=== PATIENT | female | born 1995 | race Caucasian/White ===

== ENCOUNTER 2019-07-17 18:29 | Inpatient (IN) | payer MEDICAID, OTHER ==
[~2019-07-17] VITALS: Ht 157.5 cm; Wt 69.9 kg
[~2019-07-17 18:29] MED LIST: LEVO0.0841 PO; QUET400T4 PO
[2019-07-17 18:39] VITALS: BP 117/77
--- NOTE | 2019-07-17 18:41 | NUR ---
TRIAGE COMPLETE. VSS. TO LOBBY AWAITNG BED IN ED.
--- NOTE | 2019-07-17 19:27 | NUR ---
PT AMBULATED TO BED 5.
--- NOTE | 2019-07-17 19:30 | NUR ---
23 Y/O FEMALE BIB MOTHER C/O N/V SINCE THIS MORNING AND HAVING ABD PAIN. PT DENIES ANY TRAUMA. DENIES DIARRHEA; SKIN IS PINK/WARM/DRY; AAOX4 WITH EVEN AND STEADY GAIT; PT DENIES ANY FEVER, CP, SOB, OR COUGH AT THIS TIME; PATIENT STATES PAIN OF 10/10 AT THIS TIME; VSS; PATIENT POSITIONED FOR COMFORT; HOB ELEVATED; BEDRAILS UP X1; BED DOWN AND LOCKED . MEDICAL HX: THYROID ALLERGY: PCN
--- NOTE | 2019-07-17 19:39 | NUR ---
AT BEDSIDE EXAMINING PT
--- NOTE | 2019-07-17 19:41 | NUR ---
Dr. Rodríguez examining patient.
[2019-07-17] MEDS ORDERED: NACL 0.9% 1,000 ML IV ONE (19:45)
[2019-07-17] MEDS ORDERED: KETOROLAC 30 MG/ML VIAL IVP ONE (19:45)
[2019-07-17] MEDS ORDERED: ONDANSETRON 4 MG/2 ML VIAL IVP ONE (19:45)
[2019-07-17 20:05] LABS: BASOPHILS % (AUTO) 0.1 % (0.0-2.0); EOSINOPHILS % (AUTO) 0.1 % (0.0-4.0); HEMATOCRIT 44.1 % (36-48); HEMOGLOBIN 15.5 g/dL (12.0-16.0); LYMPHOCYTES # (AUTO) 0.6 K/uL (2.5-16.5); LYMPHOCYTES % (AUTO) 5.8 % (20.5-51.1); MEAN CORPUSCULAR HEMOGLOBIN 31 pg (27-31); MEAN CORPUSCULAR HGB CONC 35 g/dL (33-37); MEAN CORPUSCULAR VOLUME 88.7 fL (80-94); MONOCYTES # (AUTO) 0.5 K/uL (0.8-1.0); MONOCYTES % (AUTO) 5.1 % (1.7-9.3); NEUTROPHILS # (AUTO) 9.1 K/uL (1.8-7.7); NEUTROPHILS % (AUTO) 88.9 % (42.2-75.2); PLATELET COUNT (AUTO) 206 K/uL (140-450); RED BLOOD CELL COUNT(AUTO) 4.97 MIL/uL (4.20-5.40); RED CELL DISTRIBUTION WIDTH 12.7 % (11.6-13.7); WHITE BLOOD COUNT (AUTO) 10.2 K/uL (4.8-10.8)
[2019-07-17 20:26] LABS: ALBUMIN 4.3 g/dL (3.4-5.0); ANION GAP 7.7 (8-16); CARBON DIOXIDE 32.3 mmol/L (21-32); CREATININE 0.7 mg/dL (0.6-1.3); TOTAL BILIRUBIN 0.5 mg/dL (0.0-1.0)
--- NOTE | 2019-07-17 20:37 | NUR ---
URINE DIP AND PREG DONE
--- NOTE | 2019-07-17 20:50 | NUR ---
PT LEFT TO CT VIA RNEY
--- NOTE | 2019-07-17 21:01 | NUR ---
PT RETUREND FROM CT VIA GURNEY. PT STABLE. PT IN POSITION OF COMFORT. BED LOW, LOCKED AND 2 SIDERAILS UP. WILL CONTINUE TO MONITOR
[2019-07-17 21:14] LABS: BILIRUBIN,URINE NEGATIVE (NEGATIVE); BLOOD, URINE 2+ (NEGATIVE); COLOR,URINE YELLOW (YELLOW); LEUKOCYTE ESTERASE ,URINE 1+ (NEGATIVE); NITRITE, URINE POSITIVE (NEGATIVE); PH,URINE 6.5 (5.0-9.0); UGLUCOSE NEGATIVE (NEGATIVE)
[2019-07-17 21:16] LABS: APPEARANCE,URINE CLOUDY (CLEAR)
[2019-07-17] MEDS ORDERED: LEVOFLOXACIN 750 MG/D5W PREMIX 150 ML IV ONE (21:20)
[2019-07-17 21:31] LABS: WBC,URINE 0-5 /HPF (0-5); YEAST,URINE Few /HPF (None Seen)
--- NOTE | 2019-07-17 22:36 | NUR ---
PT RESTING IN POSITION OF COMFORT, BED LOW AND LOCKED, 2 SIDERAILS UP. VSS. RR EVEN AND UNLABORED. WILL CONTINUE TO MONITOR
[2019-07-17] MEDS ORDERED: LAM200 PO (22:49)
--- NOTE | 2019-07-17 23:40 | NUR ---
RECEIVED PATIENT FROM ER IN STABLE CONDITION VIA GURNEY. MOTHER AT BEDSIDE. RESPIRATIONS EVEN, UNLABORED. PATIENT IS ABLE TO MAKE NEEDS KNOWN. SKIN ASSESSMENT COMPLETE. SKIN INTACT. IV SITE NOTED TO LEFT AC 20G PATENT/INTACT, INFUSING LEVAQUIN AT THIS TIME. NO C/O ABDOMINAL PAIN AT THIS TIME. NO S/SX ACUTE DISTRESS. MRSA SCREEN COMPLETED. ORIENTED PATIENT TO ROOM, STAFF AND CALL LIGHT. CALL LIGHT WITHIN REACH. WILL CONTINUE TO MONITOR.
--- NOTE | 2019-07-17 23:55 | NUR ---
TRANSFERRED CARE/REPORT GIVEN TO STEVE SAUNDERS, PT WENT TO BED 112A.
[2019-07-17 23:58] VITALS: BP 115/77
--- NOTE | 2019-07-18 | NUR ---
PATIENT C/O THAT SHE IS HUNGRY. PROVIDED EDUCATION REGARDING NPO STATUS. PATIENT VERBALIZED UNDERSTANDING BUT NEEDS REINFORCEMENT DUE TO DEVELOPMENTAL DELAY. NO S/SX ACUTE DISTRESS. CALL LIGHT WITHIN REACH. WILL CONTINUE TO MONITOR.
--- NOTE | 2019-07-18 01:01 | NUR ---
PATIENT ASLEEP WITH MOTHER AT BEDSIDE. NO C/O PAIN. NO S/SX ACUTE DISTRESS. CALL LIGHT WITHIN REACH. WILL CONTINUE TO MONITOR.
[2019-07-18] MEDS ORDERED: DEXT 5% / NACL 0.9% 500 ML IV SCH (01:50)
[2019-07-18] MEDS ORDERED: ACETAMINOPHEN 325 MG TAB PO PRN (02:40)
[2019-07-18] MEDS ORDERED: DOCUSATE SODIUM 100 MG GELCAP PO PRN (02:40)
[2019-07-18] MEDS ORDERED: FLUCONAZOLE 100 MG TAB PO SCH (02:40)
[2019-07-18] MEDS ORDERED: ONDANSETRON 4 MG/2 ML VIAL IM/IVP PRN (02:40)
[2019-07-18] MEDS ORDERED: MORPHINE SULFATE 2 MG/ML SYR IVP PRN (02:40)
[2019-07-18 03:12] LABS: PROTHROMBIN TIME 9.8 secs (10.8-13.4)
--- NOTE | 2019-07-18 03:37 | NUR ---
PATIENT ASLEEP AND IN STABLE CONDITION. NO C/O PAIN. NO S/SX ACUTE DISTRESS. CALL LIGHT WITHIN REACH. WILL CONTINUE TO MONITOR.
[2019-07-18 03:46] LABS: BARBITURATE, URINE NEG. ng/ml (NEG <=200); BENZODIAZEPINE, URINE NEG. ng/mL (NEG <=200); CANNABINOID, URINE NEG. ng/mL (NEG <=50); COCAINE, URINE NEG. ng/mL (NEG <=300); OPIATE, URINE NEG. ng/mL (NEG <=2000); PHENCYCLIDINE SCREEN,URINE NEG. ng/mL (NEG <=25)
[2019-07-18 03:55] LABS: FREE T4 (FREE THYROXINE) 1.2 ng/dL (0.76-1.46); MAGNESIUM 1.9 mg/dL (1.8-2.4); PHOSPHORUS 3.1 mg/dL (2.5-4.9); THYROID STIMULATING HORMONE 0.98 uIU/mL (0.34-3.74)
[2019-07-18] MEDS: metroNIDAZOLE 500 MG/NS PREMIX 100 ML IV SCH ×3 (04:08→20:10)
[2019-07-18] MEDS: LEVOTHYROXINE 0.075 MG TAB PO SCH (05:35)
--- NOTE | 2019-07-18 05:47 | NUR ---
PATIENT ASLEEP AND IN STABLE CONDITION. NO C/O PAIN. NO S/SX ACUTE DISTRESS. CALL LIGHT WITHIN REACH. WILL CONTINUE TO MONITOR.
[2019-07-18] MEDS: DEXT 5% /NACL 0.9% 1,000 ML IV SCH (07:17)
--- NOTE | 2019-07-18 07:22 | NUR ---
ENDORSED PATIENT TO AM SHIFT NURSE IN STABLE CONDITION FOR CONTINUITY OF CARE.
--- NOTE | 2019-07-18 07:25 | NUR ---
RECEIVED REPORT FROM NIGHT NURSE. PATIENT ASLEEP, EASILY AROUSABLE BY NAME OR TOUCH. RESPIRATION EVEN AND UNLABORED. SKIN WARM AND DRY TO TOUCH. IV INTACT AND PATENT TO LEFT AC. PLANS OF CARE DISCUSSED. MOTHER AT BEDSIDE. BED IN LOW POSITION. SAFETY MEASURES IN PLACE.
[2019-07-18 07:32] LABS: BASOPHILS % (AUTO) 0.2 % (0.0-2.0); EOSINOPHILS % (AUTO) 0.2 % (0.0-4.0); HEMATOCRIT 40.1 % (36-48); LYMPHOCYTES # (AUTO) 0.7 K/uL (2.5-16.5); MEAN CORPUSCULAR HEMOGLOBIN 31 pg (27-31); MEAN CORPUSCULAR HGB CONC 35 g/dL (33-37); MEAN CORPUSCULAR VOLUME 88.1 fL (80-94); MONOCYTES # (AUTO) 0.5 K/uL (0.8-1.0); MONOCYTES % (AUTO) 7.3 % (1.7-9.3); NEUTROPHILS # (AUTO) 5.4 K/uL (1.8-7.7); NEUTROPHILS % (AUTO) 82.3 % (42.2-75.2); PLATELET COUNT (AUTO) 175 K/uL (140-450); RED BLOOD CELL COUNT(AUTO) 4.56 MIL/uL (4.20-5.40); RED CELL DISTRIBUTION WIDTH 12.7 % (11.6-13.7); WHITE BLOOD COUNT (AUTO) 6.6 K/uL (4.8-10.8)
[2019-07-18 08:00] VITALS: BP 103/52
--- NOTE | 2019-07-18 08:49 | NUR ---
CALLED TO DR. DIAS IN REGARDS TO PATIENT'S SCHEDULED SURGERY @ 11 AM TODAY THAT NO CONSENT OBTAINED. PER DR. DIAS, HE WILL SEE AND EVALUATE THE PATIENT FIRST, HE MAY NOT PLAN ON SURGERY FOR TODAY.
--- NOTE | 2019-07-18 08:58 | NUR ---
PATIENT HAS BEEN SCREENED AND CATEGORIZED LOW NUTRITION RISK. PATIENT WILL BE SEEN WITHIN 7 DAYS OF ADMISSION. 07/24/[address]
--- NOTE | 2019-07-18 09:25 | NUR ---
PATIENT IN BED, ASLEEP EASILY AROUSABLE BY NAME OR TOUCH. NO S/S OF DISTRESS NOTED. SPOKE WITH MOTHER AT BEDSIDE IN REGARDS TO THE SURGERY THAT DR. DIAS NEED TO SEE THE PATIENT FIRST.
[2019-07-18 09:27] LABS: ANION GAP 13.2 (8-16); CARBON DIOXIDE 25.3 mmol/L (21-32); CREATININE 0.7 mg/dL (0.6-1.3); POTASSIUM 3.5 mmol/L (3.5-5.1)
--- NOTE | 2019-07-18 10:59 | NUR ---
USED [employer]ANCE [employer] HOST/HOSTESS PHONE #[phone]. EXPLAINED TO MOTHER THAT DR. DIAS WILL NEED TO SEE PATIENT PRIOR TO MAKING ANY DECISIONS RIGHT NOW. ENCOURAGED MOTHER IF SHE CAN WAIT FOR DR. DIAS. PATIENT'S FAMILY VERBALIZED UNDERSTANDING.
--- NOTE | 2019-07-18 12:00 | NUR ---
ROUNDS MADE. PATIENT IN BED, AWAKE, ALERT AND ORIENTED X4. RESTING QUIETLY. NO S/S OF DISTRESS NOTED. CALL LIGHT WITHIN REACH. SAFETY MEASURES IN PLACE.
--- NOTE | 2019-07-18 14:00 | NUR ---
ROUNDS MADE. PATIENT IN BED, AWAKE, ALERT AND ORIENTED X4. DENIES PAIN OR DISCOMFORT. RESTING QUIETLY. NO S/S OF DISTRESS NOTED. CALL LIGHT WITHIN REACH. SAFETY MEASURES IN PLACE.
[2019-07-18 16:00] VITALS: BP 104/59
--- NOTE | 2019-07-18 16:00 | NUR ---
PATIENT REMAINS IN STABLE CONDITION. VS CHECKED. NO S/S OF DISTRESS NOTED. CALL LIGHT WITHIN REACH.
--- NOTE | 2019-07-18 18:00 | NUR ---
DINNER TRAY AT BEDSIDE. PATIENT ALERT, AWAKE AND VERBALLY RESPONSIVE. NO S/S OF DISTRESS NOTED. DENIES PAIN. CALL LIGHT WITHIN REACH.
--- NOTE | 2019-07-18 19:05 | NUR ---
REPORT GIVEN TO NIGHT NURSE. PATIENT IN STABLE CONDITION.
--- NOTE | 2019-07-18 22:00 | NUR ---
PATIENT CONTINUES IN STABLE CONDITION. MOTHER IS AT BEDSIDE. NO C/O PAIN. NO S/SX ACUTE DISTRESS. PROVIDED POPSICLE TO PATIENT WITH NO DIFFICULTY EATING. NO N/V REPORTED AFTER EATING. CALL LIGHT WITHIN REACH. WILL CONTINUE TO MONITOR.
[2019-07-18] MEDS ORDERED: LEVOFLOXACIN 750 MG/D5W PREMIX 150 ML IV SCH (23:45)
[2019-07-18 23:58] VITALS: BP 105/55
--- NOTE | 2019-07-19 | NUR ---
PATIENT CONTINUES IN STABLE CONDITION. ASLEEP WITH NO C/O PAIN. NO S/SX ACUTE DISTRESS. CALL LIGHT WITHIN REACH. WILL CONTINUE TO MONITOR.
--- NOTE | 2019-07-19 02:04 | NUR ---
RECEIVED PATIENT IN STABLE CONDITION FROM AM SHIFT NURSE FOR CONTINUITY OF CARE. RESPIRATIONS EVEN, UNLABORED. NO C/O PAIN. NO S/SX ACUTE DISTRESS. IV SITE TO LEFT AC 20G PATENT/INTACT, INFUSING FLUIDS WELL. CALL LIGHT WITHIN REACH. WILL CONTINUE TO MONITOR. Addendum: 07/19/19 at 0206 by Shruthi Figueroa RN AMEND TIME TO 07/18/19 1900
--- NOTE | 2019-07-19 03:13 | NUR ---
PATIENT C/O ACHING BACK PAIN 08/24. MEDICATED ORDERED. CALL LIGHT WITHIN REACH. WILL CONTINUE TO MONITOR. Addendum: 07/19/19 at 0615 by Shruthi Figueroa RN AMEND ACHING BACK PAIN 08/[address] WITH LEFT FLANK PAIN 07/24.
[2019-07-19] MEDS: DEXT 5% /NACL 0.9% 1,000 ML IV SCH (03:17)
--- NOTE | 2019-07-19 04:13 | NUR ---
REASSESSED PAIN LEVEL AT 2/10, TOLERABLE PAIN LEVEL. NO S/SX ACUTE DISTRESS. CALL LIGHT WITHIN REACH. WILL CONTINUE TO MONITOR.
[2019-07-19] MEDS: metroNIDAZOLE 500 MG/NS PREMIX 100 ML IV SCH (04:58)
--- NOTE | 2019-07-19 06:15 | NUR ---
PATIENT AWAKE AND IN STABLE CONDITION. NO S/SX ACUTE DISTRESS. NO C/O PAIN. CALL LIGHT WITHIN REACH. WILL CONTINUE TO MONITOR.
[2019-07-19] MEDS: LEVOTHYROXINE 0.075 MG TAB PO SCH (06:34)
[2019-07-19 07:40] LABS: BASOPHILS % (AUTO) 0.7 % (0.0-2.0); EOSINOPHILS % (AUTO) 0.8 % (0.0-4.0); HEMATOCRIT 40.4 % (36-48); HEMOGLOBIN 13.9 g/dL (12.0-16.0); LYMPHOCYTES % (AUTO) 48.5 % (20.5-51.1); MEAN CORPUSCULAR HEMOGLOBIN 31 pg (27-31); MEAN CORPUSCULAR HGB CONC 34 g/dL (33-37); MEAN CORPUSCULAR VOLUME 89.4 fL (80-94); MONOCYTES # (AUTO) 0.5 K/uL (0.8-1.0); MONOCYTES % (AUTO) 13.3 % (1.7-9.3); NEUTROPHILS # (AUTO) 1.5 K/uL (1.8-7.7); NEUTROPHILS % (AUTO) 36.7 % (42.2-75.2); PLATELET COUNT (AUTO) 168 K/uL (140-450); RED BLOOD CELL COUNT(AUTO) 4.52 MIL/uL (4.20-5.40); RED CELL DISTRIBUTION WIDTH 12.8 % (11.6-13.7); WHITE BLOOD COUNT (AUTO) 4.1 K/uL (4.8-10.8)
[2019-07-19 08:00] VITALS: BP 125/71
[2019-07-19 08:12] LABS: ANION GAP 11.4 (8-16); CARBON DIOXIDE 27.3 mmol/L (21-32); CREATININE 0.8 mg/dL (0.6-1.3); POTASSIUM 3.7 mmol/L (3.5-5.1)
--- NOTE | 2019-07-19 08:15 | NUR ---
PATIENT AWAKE AND IN STABLE CONDITION. NO C/O PAIN. NO S/SX ACUTE DISTRESS. CALL LIGHT WITHIN REACH. WILL CONTINUE TO MONITOR.
[2019-07-19 08:41] LABS: MAGNESIUM 1.8 mg/dL (1.8-2.4); PHOSPHORUS 2.8 mg/dL (2.5-4.9)
[2019-07-19 09:53] LABS: CHOL/HDL RATIO 2.2 (1-4.5)
[2019-07-19] MEDS ORDERED: LACT-81 PO (10:09)
[2019-07-19] MEDS ORDERED: LEVO750T2 PO (10:09)
--- NOTE | 2019-07-19 10:30 | NUR ---
IV SITE ACCIDENTLY PULLED OUT OF PLACE BY PATIENT. DUE TO IMMINENT PATIENT DISCHARGE, MD SAID TO JUST DISCONTINUE IT. IV DISCONTINUED, CATHETER INTACT WITH MINIMAL BLEEDING. NO S/X ACUTE DISTRESS. CALL LIGHT WITHIN REACH. WILL CONTINUE TO MONITOR.
--- NOTE | 2019-07-19 10:50 | NUR ---
ENDORSED PATIENT IN STABLE CONDITION TO AM SHIFT NURSE FOR CONTINUITY OF CARE.
--- NOTE | 2019-07-19 12:30 | NUR ---
PT ALOK LUNCH REGULAR WITHOUT N/V, PT DENIES PAIN OR DISCOMFORT, GETS UP OUT OF BED WITH STEADY GAIT, DC INSTRUCTION AND RX INFO GIVEN AND EXPLAINED TO MOTHER ON [employer] PHONE ([phone]), SHE VERBALIZED FULL UNDERSTANDING, DC HOME NOW WITH MOTHER.
== END 2019-07-19 12:50 | disposition home or self-care (01) | DRG 463 ==
LOC: MED 18:29 → MTU 22:31
PROVIDERS: ADMIT General Practice; ATTEND General Practice
DX: N39.0 Urinary tract infection, site not specified (principal); E03.9 Hypothyroidism, unspecified; K52.9 Noninfective gastroenteritis and colitis, unspecified; F79 Unspecified intellectual disabilities; Z88.0 Allergy status to penicillin
CPT/HCPCS: 36415; 71045; 80048; 80053; 80305; 81001; 81025; 82150; 83036; 83605; 83690; 83735; 83880; 84100; 84134; 84439; 84443; 84484; 85025; 85610; 85730; 87040; 87081; 87086; 93005; 96365; 96375; 99285; J1885; J1956; J2405; J3490; Q0092

== ENCOUNTER 2019-08-07 17:47 | Emergency (ER) | payer OTHER ==
[~2019-08-07] VITALS: Ht 165.1 cm; Wt 71.4 kg
[~2019-08-07 17:47] MED LIST changes: +LACT-81 PO; +LAM200 PO; +LEVO750T2 PO; -QUET400T4 PO
--- NOTE | 2019-08-07 18:00 | NUR ---
AMBULATED TO ER BED 7
[2019-08-07 18:02] VITALS: BP 107/77
--- NOTE | 2019-08-07 18:30 | NUR ---
HX-HYDROCEPHALUS, THROID, DOWN SYNDROME, AWAKE , ALERT, AFIBRILE , AMBULATORY WITH STEADY GAIT , SCE, CBS BLF . PAIN 09/23 -TRAUMA LMP 07/19/2019
--- NOTE | 2019-08-07 18:47 | NUR ---
PT LYING IN BED COMFORTABLY ,AWAKE , ALERT, AFIBRILE ,MOTHER AT BEDSIDE.SIDE RAILS UP X 1 AND LOCK.
--- NOTE | 2019-08-07 19:10 | NUR ---
GAVE REPORT TO STEVE SIDHU ,PT AWAKE , ALERT WITH STABLE V/S.
--- NOTE | 2019-08-07 19:15 | NUR ---
PATIENT ALERT AND AWAKE, BREATHING EVEN AND UNLABORED
--- NOTE | 2019-08-07 19:39 | NUR ---
Dr. Reyes examining patient.
[2019-08-07] MEDS ORDERED: IBUPROFEN 600 MG TAB PO ONE (19:45)
[2019-08-07 20:48] LABS: APPEARANCE,URINE CLOUDY (CLEAR); BILIRUBIN,URINE NEGATIVE (NEGATIVE); BLOOD, URINE 1+ (NEGATIVE); COLOR,URINE RED (YELLOW); LEUKOCYTE ESTERASE ,URINE 1+ (NEGATIVE); NITRITE, URINE NEGATIVE (NEGATIVE); UGLUCOSE NEGATIVE (NEGATIVE)
[2019-08-07 21:00] VITALS: BP 138/50
--- NOTE | 2019-08-07 21:00 | NUR ---
Patient discharged with v/s stable. Written and verbal after care instructions given and explained to mother and patient with translation in togolese. Patient alert, oriented and verbalized understanding of instructions. Ambulatory with steady gait. All questions addressed prior to discharge. ID band removed. Patient advised to follow up with PMD. Rx of Macrobid and Motrin given. Patient educated on indication of medication including possible reaction and side effects. Opportunity to ask questions provided and answered.
[2019-08-07 21:07] LABS: RBC,URINE NONE SEEN /HPF (0-5)
== END 2019-08-07 21:00 | disposition home or self-care (01) ==
LOC: MED 17:47
DX: N39.0 Urinary tract infection, site not specified (principal); E07.9 Disorder of thyroid, unspecified; Z88.0 Allergy status to penicillin; Z79.899 Other long term (current) drug therapy
CPT/HCPCS: 81001; 87086; 99283